=== PATIENT | male | born 1945 | race African-American/Black ===

== ENCOUNTER 2017-10-25 08:33 | Observation (INO) | payer MEDICARE, OTHER ==
[2017-10-25] VITALS (7 sets, daily range): BP systolic 134–139; BP diastolic 65–71
[~2017-10-25] VITALS: Ht 182.9 cm; Wt 103.0 kg
[~2017-10-25 08:33] MED LIST: ASPIR 8181 MG PO; BETIMOL5 M1 OU; FINASTERIDE5 MG PO; FLOMAX0.4 MG PO; GABAPENTIN300 MG PO; HUMALOG100 UNIT/1 SC; HYDRALAZINE HCL25 MG PO; KLOR-CON20 MEQ PO; LINZESS PO; LORAZEPAM1 MG PO; LOSARTAN POTAS100 MG PO; MECLIZINE HCL12.5 MG PO; METOPROLOL SUCC50 MG PO; NIFEDIPINE ER30 M1 PO; NORCO 7.5-3251 EACH PO; PANTOPRAZOLE SO40 MG PO; SOMA350 MG PO
[2017-10-25] MEDS ORDERED: CEFOXITIN SOD 1 GM VIAL ONE (09:00)
--- NOTE | 2017-10-25 09:44 | Diagnostic Imaging Report ---
PROCEDURE: Frontal and lateral views of the chest. COMPARISON: None. INDICATIONS: PRE OPERATIVE CHEST X-RAY FOR PROSTATE BIOPSY FINDINGS: Lines/tubes: None. Lungs: The lungs are moderately inflated. There is no evidence of pneumonia or pulmonary edema. Pleura: There is no pleural effusion or pneumothorax. Heart and mediastinum: The cardiomediastinal silhouette is unremarkable. Atherosclerotic calcification of the aortic arch. Bones: No acute bony abnormality. Cervical hardware is noted. IMPRESSION: No acute cardiopulmonary disease. Dictated by: SHELLEY HERNÁNDEZ M.D. on 10/25/2017 at 9:49 Electronically approved by: SHELLEY HERNÁNDEZ M.D. on 10/25/2017 at 9:49
[2017-10-25 10:07] LABS: BASOPHILS % 0.5 % (0.0-1.0); EOSINOPHILS # (AUTO) 0.2 (0.0-0.4); EOSINOPHILS % 2.7 % (0.0-6.0); HEMOGLOBIN 12.6 g/dL (14.0-18.0); LYMPHOCYTES # (AUTO) 1.7 (1.0-3.2); LYMPHOCYTES % 25.5 % (18.0-39.1); MEAN CORPUSCULAR HEMOGLOBIN 31.2 pg (28-32); MEAN CORPUSCULAR VOLUME 89.1 fL (81-99); MONOCYTES # (AUTO) 0.8 (0.2-0.8); MONOCYTES % 11.8 % (4.4-11.3); NEUTROPHILS # (AUTO) 3.9 (2.1-6.9); NEUTROPHILS % 59.2 % (38.7-80.0); PLATELET COUNT 214 x10e3/uL (140-360); RED BLOOD COUNT 4.04 x10e6/uL (4.3-5.7); RED CELL DISTRIBUTION WIDTH 12.4 % (11.7-14.4)
[2017-10-25 10:22] LABS: INR 1.17; PARTIAL THROMBOPLASTIN TIME 27.6 seconds (23.8-35.5)
[2017-10-25 10:29] LABS: ANION GAP 10.8 mmol/L (8-16); BLOOD UREA NITROGEN 8 mg/dL (7-26); BUN/CREATININE RATIO 7 (6-25); CALCIUM 9.2 mg/dL (8.4-10.2); CARBON DIOXIDE 24 mmol/L (22-29); CHLORIDE 109 mmol/L (98-107); CREATININE, SERUM 1.17 mg/dL (0.72-1.25); EST GLOMERULAR FILTRATION RATE > 60 ML/MIN (60-); GLUCOSE 94 mg/dL (74-118); POTASSIUM 3.8 mmol/L (3.5-5.1); SODIUM 140 mmol/L (136-145)
[2017-10-25] MEDS ORDERED: CARISOPRODOL 350 MG TAB PO PRN (11:45)
[2017-10-25] MEDS ORDERED: HYDROCODONE/APAP 7.5MG-325MG 1 EA TAB PO PRN (11:45)
[2017-10-25] MEDS ORDERED: FENTANYL CITRATE/PF 100MCG/2 ML INJ ONE ×2 (11:51→18:21)
[2017-10-25] MEDS ORDERED: CEFOXITIN 1GM/ DEXTROSE 50ML 50 ML IV SCH (12:00)
--- NOTE | 2017-10-25 12:17 | Operative Report ---
DATE OF PROCEDURE: October 25, 2017 PREOPERATIVE DIAGNOSIS: Elevated prostate-specific antigen. POSTOPERATIVE DIAGNOSIS: Elevated prostate-specific antigen. OPERATION PERFORMED: Ultrasound-directed transrectal prostate biopsy. ANESTHESIA: General. INDICATIONS: This patient is a 72-year-old black male who has multiple medical problems including type 1 diabetes mellitus, essential hypertension, hypercholesterolemia, and some heart failure and open-angle glaucoma. The patient has had a long history of prostate problems. He, in fact, had a prostate biopsy in 2014 that came back showing chronic prostatitis. However, since then his PSA has gone from 8.8 up to a 14.65. The patient has now been scheduled for an ultrasound-directed transrectal prostate biopsy. For further details, please refer to the history and physical. The procedure was done in the following fashion. DESCRIPTION OF PROCEDURE: The patient was taken to the operating room and placed under general anesthesia and then moved into a lateral decubitus position with the right side up. An ultrasound scan of the prostate was performed, which revealed normal-appearing seminal vesicles. The prostate was estimated at about 44 grams. Some internal calcifications were identified. The seminal vesicles appeared normal. Sextant biopsies of the prostate were performed using the Xeround spring-loaded biopsy gun. Specimens were taken from the right base lateral, then right base medial, then right mid lateral, then right mid medial, then right apex lateral, then right apex medial, then left base lateral, then left base medial, then left mid lateral, then left mid medial, then left apex lateral, then left apex medial. After the 12 specimens were obtained, the ultrasound probe was removed. The patient was then turned to a supine position and an 18-K[place] Plunkett catheter inserted. The patient tolerated the procedure well and left the operating room in good condition. In view of his multiple medical problems, he is being kept overnight for observation and Dr. Jagdish Fontana is being consulted to help with his medical management. Job#: [id number] EV
[2017-10-25] MEDS ORDERED: CEFOXITIN SOD 1 GM VIAL IV SCH (13:00)
[2017-10-25] MEDS: MECLIZINE HCL 12.5 MG TAB PO SCH ×3 (13:14→20:35)
[2017-10-25] MEDS ORDERED: INSULIN LISPRO 100 UNIT/1 ML 3ML VIAL SQ SCH (13:30)
[2017-10-25] MEDS: SODIUM CHLORIDE 0.9% 1000ML 1,000 ML IV SCH (13:41)
[2017-10-25] MEDS: HYDROCODONE/APAP 7.5MG-325MG 1 EA TAB PO SCH ×2 (15:00→20:35)
[2017-10-25] MEDS: HYDRALAZINE HCL 25 MG TAB PO SCH ×2 (15:15→20:35)
[2017-10-25] MEDS: POTASSIUM CHLORIDE 20 MEQ TAB CR PO SCH ×2 (15:18→20:35)
[2017-10-25] MEDS: MORPHINE SULFATE INJ 4 MG/ML INJ IV PRN (15:32)
[2017-10-25] MEDS: CEFOXITIN SOD 1 GM VIAL IV SCH ×2 (15:33→18:53)
[2017-10-25] MEDS ORDERED: NON-FORMULARY MEDICATION (Timolol (Betimol) 1 DROP) OU SCH (17:00)
[2017-10-25] MEDS: LOSARTAN POTASSIUM 100 MG TAB PO SCH (17:34)
[2017-10-25] MEDS: DOCUSATE SODIUM 100 MG CAP PO SCH (17:34)
[2017-10-25] MEDS: NIFEDIPINE CR 30 MG TAB PO SCH (17:34)
[2017-10-25] MEDS ORDERED: PROPOFOL IV EMULSION 10 MG/ML 20 ML VIAL ONE (17:45)
[2017-10-25] MEDS ORDERED: LIDOCAINE HCL 2% JELLY 5 ML TUBE ONE (17:45)
[2017-10-25] MEDS ORDERED: SEVOFLURANE INHAL SOLN 250 ML PEN BTL ONE (17:45)
[2017-10-25] MEDS ORDERED: DEXAMETHASONE SOD PHOS INJ 4 MG/ML VIAL ONE (17:45)
[2017-10-25] MEDS ORDERED: ONDANSETRON HCL INJ 2 MG/ML VIAL ONE (17:45)
[2017-10-25] MEDS ORDERED: LIDOCAINE HCL 2% LOCAL INJ 5 ML SDV VIAL INJ ONE (17:45)
[2017-10-25] MEDS ORDERED: MIDAZOLAM HCL 2 MG/2 ML VIAL ONE (18:21)
[2017-10-25] MEDS: INSULIN LISPRO 100 UNIT/1 ML 3ML VIAL SQ SCH (18:52)
[2017-10-25] MEDS ORDERED: METOPROLOL SUCCINATE 50 MG TAB XL PO SCH (21:00)
[2017-10-25] MEDS ORDERED: TAMSULOSIN HCL 0.4 MG CAP PO SCH (21:00)
[2017-10-25] MEDS ORDERED: GABAPENTIN 300 MG CAP PO SCH (21:00)
[2017-10-25] MEDS ORDERED: LORAZEPAM 1 MG TAB PO SCH (21:00)
--- NOTE | 2017-10-25 21:36 | History and Physical ---
CHIEF COMPLAINT: BPH, status post prostate biopsy performed by Dr. Satya Aguilar today on 10/25/2017. HPI: This is a 72-year-old male with known history of BPH, hypertension, acid reflux, and chronic pain in which he comes in for an elective prostate biopsy performed by Dr. Aguilar. Patient reports that over the last several weeks, he has been having some elevated PSA in which his urologist was concerned and hence, for the reason for the prostate biopsy. Patient denies any other complaints at this time. He denies any hematuria prior to arrival to the hospital. He currently is doing well with no other complaints. Denies any chest pain, palpitations, nausea or vomiting. Patient seen evaluated at bedside on the medical floor, currently stable, vital signs stable. REVIEW OF SYSTEMS Pertinent positive: Elevated PSA with BPH. Pertinent negative: Denies any chest pain, palpitations, nausea, vomiting, diarrhea, dysuria, hematuria, frequency, urgency, lightheadedness, dizziness, abdominal pain, headache, shortness of breath, fever, cough, congestion or any other complaints. The rest of the 14-point review of systems have been reviewed with the patient and are negative. ALLERGIES: SULFA. MEDICATIONS: At home, he takes 1. Elliott 7.5 mg every 6 hours as needed. 2. Soma 350 mg p.r.n. for muscle spasms. 3. Aspirin 81 mg daily. 4. Finasteride 5 mg daily. 5. Gabapentin 300 mg p.o. nightly. 6. Hydralazine 50 mg p.o. t.i.d. 7. Humalog 10 units subcutaneous t.i.d. 8. Lorazepam 2 mg at bedtime. 9. Losartan 50 mg b.i.d. 10. Meclizine 25 mg q.i.d. p.r.n. 11. Metoprolol ER 100 mg at bedtime. 12. Nifedipine 90 mg p.o. b.i.d. 13. Potassium supplement. 14. Tamsulosin 0.4 mg at bedtime. 15. Timolol 1 drop per each eye b.i.d. 16. Linzess 290 mcg p.o. daily. PAST MEDICAL HISTORY: BPH, chronic pain syndrome, anxiety, chronic dizziness, hypertension, BPH. SURGICAL HISTORY: Status post prostate biopsy performed 10/25/2017. FAMILY HISTORY: Hypertension, diabetes. SOCIAL HISTORY: No drugs, no alcohol, and does not smoke. . Good social support. VITAL SIGNS: Temperature is 97, pulse is 85, respiratory rate is 18, blood pressure is 137/67, pulse ox 96% on room air. LAB FINDINGS: Show white count of 6.5, hemoglobin 12.6, hematocrit is 36, and platelets of 240,000. Coagulation, PT 14, INR 1.1, PTT 27. Chemistry, sodium 140, potassium 3.8, chloride 109, bicarb 24, anion gap of 10, BUN is 8, creatinine is 1.1, glucose is 94, calcium 9.2. IMAGING STUDIES: Chest x-ray, no acute cardiopulmonary disease. PHYSICAL EXAM GENERAL: Not in acute distress, alert, oriented times 3, cooperative on exam. HEENT: Head normocephalic, atraumatic. Eyes, pupils equal and reactive to light bilaterally. Extraocular movements intact bilaterally. NECK: Supple with good range of motion throughout. No evidence of any erythema or exudates in the posterior pharynx. Has poor dentition. PULMONARY: Clear to auscultation bilaterally. No wheezing, no rales, no rhonchi, no crackles appreciated. CARDIOVASCULAR: Positive S1, S2. No murmurs, rubs or gallops appreciated. ABDOMEN: Soft, nondistended, nontender to palpation. Bowel sounds present. MUSCULOSKELETAL: Strength is 5/5 throughout. No evidence of any motor deficits on examination. No weakness appreciated. NEUROLOGIC: Cranial nerves II through XII grossly intact. No evidence of any neurologic deficit on exam. SKIN: Intact. Warm to touch. Good capillary refill. PSYCHIATRIC: Normal affect and mood. EXTREMITIES: No edema. Good range of motion throughout. IMPRESSIONS 1. BPH with elevated prostate specific antigen, status post prostate biopsy performed on 10/25/[address] Satya Aguilar, urology. 2. Type-2 diabetes. 3. Hypertension. 4. Chronic pain syndrome. PLAN: At this time, patient will be admitted under observation and monitor closely overnight. He currently has a Plunkett per urology recommendations. Urology will evaluate tomorrow and likely the patient be discharged tomorrow. We are going to resume all home medications with no changes. Will also resume his insulin that he takes at home. His antihypertensive will be restarted as well. Patient is currently doing well during my examination with normal vital signs. We are going to hold anticoagulation due to current hematuria. We are going to continue to follow the patient. He will be on a heart-healthy diet otherwise. Job#: [id number] QUIQUE
[2017-10-26] VITALS: BP 122/58
[2017-10-26] MEDS: SODIUM CHLORIDE 0.9% 1000ML 1,000 ML IV SCH ×2 (00:38→08:34)
[2017-10-26] MEDS: CEFOXITIN SOD 1 GM VIAL IV SCH ×2 (00:38→05:59)
[2017-10-26 04:00] VITALS: BP 122/57
[2017-10-26 05:34] LABS: BASOPHILS % 0.1 % (0.0-1.0); EOSINOPHILS % 0.1 % (0.0-6.0); HEMOGLOBIN 10.9 g/dL (14.0-18.0); LYMPHOCYTES # (AUTO) 1.1 (1.0-3.2); LYMPHOCYTES % 9.8 % (18.0-39.1); MEAN CORPUSCULAR HEMOGLOBIN 31.3 pg (28-32); MEAN CORPUSCULAR HGB CONC 35.2 g/dL (31-35); MEAN CORPUSCULAR VOLUME 89.1 fL (81-99); MONOCYTES # (AUTO) 1.1 (0.2-0.8); MONOCYTES % 9.5 % (4.4-11.3); NEUTROPHILS # (AUTO) 9.2 (2.1-6.9); NEUTROPHILS % 80.2 % (38.7-80.0); PLATELET COUNT 189 x10e3/uL (140-360); RED BLOOD COUNT 3.48 x10e6/uL (4.3-5.7); RED CELL DISTRIBUTION WIDTH 12.2 % (11.7-14.4)
[2017-10-26 05:51] LABS: ANION GAP 10.7 mmol/L (8-16); BLOOD UREA NITROGEN 7 mg/dL (7-26); BUN/CREATININE RATIO 7 (6-25); CALCIUM 8.7 mg/dL (8.4-10.2); CARBON DIOXIDE 25 mmol/L (22-29); CHLORIDE 110 mmol/L (98-107); EST GLOMERULAR FILTRATION RATE > 60 ML/MIN (60-); GLUCOSE 143 mg/dL (74-118); POTASSIUM 3.7 mmol/L (3.5-5.1); SODIUM 142 mmol/L (136-145)
[2017-10-26] MEDS ORDERED: PANTOPRAZOLE SOD 40 MG TABEC PO SCH (07:30)
[2017-10-26] MEDS: MORPHINE SULFATE INJ 4 MG/ML INJ IV PRN (07:46)
[2017-10-26 08:00] VITALS: BP 129/65
[2017-10-26] MEDS: MECLIZINE HCL 12.5 MG TAB PO SCH (08:48)
[2017-10-26] MEDS: HYDRALAZINE HCL 25 MG TAB PO SCH (08:48)
[2017-10-26] MEDS: INSULIN LISPRO 100 UNIT/1 ML 3ML VIAL SQ SCH (08:48)
[2017-10-26] MEDS: DOCUSATE SODIUM 100 MG CAP PO SCH (08:48)
[2017-10-26] MEDS: LOSARTAN POTASSIUM 100 MG TAB PO SCH (08:49)
[2017-10-26] MEDS: POTASSIUM CHLORIDE 20 MEQ TAB CR PO SCH (08:49)
[2017-10-26] MEDS ORDERED: NON-FORMULARY MEDICATION ([Linzess] 290 MCG) PO SCH (09:00)
[2017-10-26] MEDS ORDERED: LINACLOTIDE 145 MCG CAPSULE PO SCH (09:00)
[2017-10-26] MEDS ORDERED: TIMOLOL MALEATE 0.5% OPTH DRP 5 ML BTL OU SCH (09:00)
[2017-10-26] MEDS ORDERED: FINASTERIDE 5 MG TAB PO SCH (09:00)
[2017-10-26] MEDS ORDERED: ASPIRIN 81 MG CHEW TAB PO SCH (09:00)
[2017-10-26] MEDS: HYDROCODONE/APAP 7.5MG-325MG 1 EA TAB PO SCH (09:50)
[2017-10-26] MEDS: NIFEDIPINE CR 30 MG TAB PO SCH (09:51)
[2017-10-26 10:27] VITALS: BP 129/60
[2017-10-26] MEDS ORDERED: KEFLEX500 MG PO (11:40)
[2017-10-26 11:52] VITALS: BP 151/72
--- NOTE | 2017-10-26 12:28 | Progress Note ---
DATE: October 26, 2017 The patient is now 1 day status post ultrasound directed transrectal prostate biopsy. Patient's Plunkett catheter has been removed. He is voiding clear-colored urine. He denies pain or burning on urination. There is no fever. The patient is breathing without difficulty. There is no evidence of deep venous thrombophlebitis at this time. My plan at this time is to discharge the patient on Keflex 500 mg 1 p.o. 4 times daily for 7 days. He will have return appointment to see me again in 2 weeks. In 2 weeks, we will go over the results of the biopsy. Job#: [id number] PERLA
== END 2017-10-26 13:26 | disposition home or self-care (01) ==
LOC: OR 08:33 → PACU V 11:42 → IMCU 12:25
PROVIDERS: ADMIT Internal Medicine; ATTEND Internal Medicine
DX: N40.1 Benign prostatic hyperplasia with lower urinary tract symptoms (principal); G89.4 Chronic pain syndrome; I10 Essential (primary) hypertension; E11.9 Type 2 diabetes mellitus without complications; G47.33 Obstructive sleep apnea (adult) (pediatric); F41.9 Anxiety disorder, unspecified; K21.9 Gastro-esophageal reflux disease without esophagitis; R35.1 Nocturia; D35.02 Benign neoplasm of left adrenal gland; N28.1 Cyst of kidney, acquired; R97.20 Elevated prostate specific antigen [PSA]; E10.9 Type 1 diabetes mellitus without complications; J98.4 Other disorders of lung; I50.9 Heart failure, unspecified; E66.9 Obesity, unspecified; E78.00 Pure hypercholesterolemia, unspecified; H40.10X0 Unspecified open-angle glaucoma, stage unspecified
CPT/HCPCS: 36415 ×2; 55700; 71046; 76872; 76942 ×2; 80048 ×2; 82948 ×2; 85025 ×2; 85610; 85730; 88305; 93005; G0378 ×2; J0694 ×2; J1100; J2001 ×2; J2250; J2270 ×2; J2405; J7030 ×2; S0164